=== PATIENT | female | born 1990 | race Caucasian/White ===

== ENCOUNTER 2016-05-02 00:49 | Emergency (ER) | payer OTHER ==
[~2016-05-02] VITALS: Ht 160 cm; Wt 91.4 kg
[~2016-05-02 00:49] MED LIST: ALBUTEROL SULF8.5 GM IH; BACLOFEN10 MG PO; FLONASE ALLERG9.9 ML BOTH NARES; FLONASE16 G1 BOTH NARES; MOTRIN800 MG PO; MUCUS RELIEF600 M1 PO; NAPROSYN500 MG PO; PEN-VEE K,VEET500 MG PO; PREDNISONE20 MG PO; ROBITUSSIN NIG118 ML PO; TESSALON PERLE100 MG PO; ULTRAM50 MG PO; ZITHROMAX Z-PA250 MG PO
[2016-05-02 01:08] VITALS: BP 106/69
== END 2016-05-02 02:30 | disposition left against medical advice (07) ==
LOC: EME 00:49
DX: M25.561 Pain in right knee (principal); M25.562 Pain in left knee; Z53.21 Procedure and treatment not carried out due to patient leaving prior to being seen by health care provider

== ENCOUNTER 2016-05-04 20:24 | Emergency (ER) | payer SELFPAY ==
[~2016-05-04] VITALS: Ht 160 cm; Wt 87.1 kg
[2016-05-04] MEDS ORDERED: NAPROSYN500 MG PO (21:34)
[2016-05-04] MEDS ORDERED: IBUPROFEN800 MG PO (22:00)
[2016-05-04 22:02] VITALS: BP 134/87
== END 2016-05-04 22:05 | disposition home or self-care (01) ==
LOC: EME 20:24
DX: S83.91XA Sprain of unspecified site of right knee, initial encounter (principal); S83.92XA Sprain of unspecified site of left knee, initial encounter; X58.XXXA Exposure to other specified factors, initial encounter; Y93.E6 Activity, residential relocation; F17.200 Nicotine dependence, unspecified, uncomplicated
CPT/HCPCS: 99281; 99284

== ENCOUNTER 2016-05-19 21:28 | Emergency (ER) | payer SELFPAY ==
[~2016-05-19] VITALS: Ht 160 cm; Wt 83.3 kg
[~2016-05-19 21:28] MED LIST changes: +IBUPROFEN800 MG PO
[2016-05-19 21:57] LABS: HEMATOCRIT 43.4 % (36.0-46.0); MCH 30.1 PG (29.0-34.0); MCHC 33.4 G/DL (30.0-36.0); MCV 90.2 FL (83-99); MEAN PLAT.VOLUME 10.8 uM^3 (9.5-12.4); PLATELET COUNT 300 K/uL (156-360); RBC DIS.WIDTH-CV 12.7 % (11.8-14.6); RBC DIS.WIDTH-SD 41.4 % (39-53); RED BLOOD COUNT 4.81 M/uL (3.80-5.20); WHITE BLOOD COUNT 11.9 K/uL (4.1-10.2)
[2016-05-19 22:07] LABS: CHLORIDE 105 mEq/L (99-109); POTASSIUM 4.2 mEq/L (3.7-5.4); SODIUM 138 mEq/L (136-147)
[2016-05-19 22:10] LABS: GLUCOSE 104 mg/dL (70-99)
[2016-05-19 22:11] LABS: ANION GAP 10 MEQ/L (2-14)
[2016-05-19 22:13] LABS: ALKALINE PHOSPHATASE 65 IU/L (3-129); GFR ESTIMATE (CALCULATED) > 59 mL/min/
[2016-05-19 22:14] LABS: UREA NITROGEN (BUN) 17 mg/dL (9-23)
[2016-05-19 22:18] LABS: QUANTITATIVE HCG < 4.0 MIU/ML
[2016-05-19 23:44] LABS: ADD MIUA? YES; BILIRUBIN NEGATIVE; BLOOD NEGATIVE; COLOR YELLOW ((YELLOW)); GLUCOSE (STRIP) NEGATIVE; KETONES 20; LEUKOCYTES NEGATIVE; NITRITE NEGATIVE; PROTEIN (STRIP) 30; UROBILINOGEN 0.2 MG/DL (0.2-1.0)
[2016-05-19 23:50] LABS: BACTERIA RARE /HPF; EPITHELIAL CELLS 1+ /HPF; MUCUS TRACE /LPF; RED BLOOD CELLS 0-5 /HPF (0-5); UCUL ADDED? NO; UNCLASSIFIED CRYSTALS 2+ /HPF
[2016-05-20] MEDS ORDERED: ZOFRAN ODT4 MG PO (01:40)
[2016-05-20 01:58] VITALS: BP 105/52
== END 2016-05-20 01:59 | disposition home or self-care (01) ==
LOC: EME 21:28
DX: K52.9 Noninfective gastroenteritis and colitis, unspecified (principal); R10.9 Unspecified abdominal pain
CPT/HCPCS: 74177; 80053; 81003; 84702; 85027; 99281; 99285; J2405; J7030

== ENCOUNTER 2016-08-01 23:05 | Emergency (ER) | payer SELFPAY ==
[~2016-08-01] VITALS: Ht 157.5 cm; Wt 83.6 kg
[~2016-08-01 23:05] MED LIST changes: +ZOFRAN ODT4 MG PO
[2016-08-02 00:19] LABS: HEMATOCRIT 35.2 % (36.0-46.0); MCH 30.8 PG (29.0-34.0); MCV 93.4 FL (83-99); MEAN PLAT.VOLUME 10.1 uM^3 (9.5-12.4); PLATELET COUNT 297 K/uL (156-360); RBC DIS.WIDTH-CV 12.7 % (11.8-14.6); RBC DIS.WIDTH-SD 43.6 % (39-53); RED BLOOD COUNT 3.77 M/uL (3.80-5.20)
[2016-08-02 00:31] LABS: CHLORIDE 105 mEq/L (99-109); POTASSIUM 3.6 mEq/L (3.7-5.4); SODIUM 138 mEq/L (136-147)
[2016-08-02 00:34] LABS: GLUCOSE 100 mg/dL (70-99)
[2016-08-02 00:35] LABS: ANION GAP 9 MEQ/L (2-14)
[2016-08-02 00:36] LABS: TOTAL BILIRUBIN 0.2 mg/dL (0.0-1.0)
[2016-08-02 00:37] LABS: ALKALINE PHOSPHATASE 46 IU/L (3-129); GFR ESTIMATE (CALCULATED) > 59 mL/min/
[2016-08-02 00:38] LABS: UREA NITROGEN (BUN) 11 mg/dL (9-23)
[2016-08-02 00:41] LABS: LIPASE 21 U/L (1.0-51.0)
[2016-08-02 00:48] LABS: BILIRUBIN NEGATIVE; BLOOD NEGATIVE; COLOR YELLOW ((YELLOW)); GLUCOSE (STRIP) NEGATIVE; KETONES NEGATIVE; LEUKOCYTES NEGATIVE; NITRITE NEGATIVE; PROTEIN (STRIP) NEGATIVE; SPECIFIC GRAVITY 1.025 (1.000-1.030); UROBILINOGEN 0.2 MG/DL (0.2-1.0)
[2016-08-02 00:49] LABS: ADD MIUA? NO; UCUL ADDED? NO
[2016-08-02 01:06] LABS: QUANTITATIVE HCG 19941.9 MIU/ML
[2016-08-02 02:55] VITALS: BP 110/80
== END 2016-08-02 03:01 | disposition home or self-care (01) ==
LOC: EME 23:05 → RME 23:05
PROVIDERS: Physician Assistant Medical
DX: O26.891 Other specified pregnancy related conditions, first trimester (principal); R10.30 Lower abdominal pain, unspecified; Z3A.01 Less than 8 weeks gestation of pregnancy; O99.331 Smoking (tobacco) complicating pregnancy, first trimester; F17.200 Nicotine dependence, unspecified, uncomplicated
CPT/HCPCS: 76801; 80053; 81003; 83690; 84702; 85027; 86900; 86901; 99281; 99284

== ENCOUNTER 2016-12-19 02:34 | Emergency (ER) | payer OTHER ==
[~2016-12-19] VITALS: Ht 160 cm; Wt 93.0 kg
[2016-12-19] MEDS ORDERED: KEFLEX500 MG PO (03:46)
[2016-12-19 05:00] VITALS: BP 101/71
== END 2016-12-19 05:17 | disposition home or self-care (01) ==
LOC: EME 02:34
DX: L24.9 Irritant contact dermatitis, unspecified cause (principal); L73.9 Follicular disorder, unspecified; Z33.1 Pregnant state, incidental; Z3A.26 26 weeks gestation of pregnancy; Z87.891 Personal history of nicotine dependence
CPT/HCPCS: 99281; 99284

== ENCOUNTER → 2017-01-05 | Outpatient (CLI) | payer OTHER ==
[~2017-01-05] VITALS: Ht 160 cm; Wt 92.1 kg
[~2017-01-05] MED LIST changes: +KEFLEX500 MG PO; +PRENATAL TABLE1 EAC3 PO
[2017-01-05 17:19] VITALS: BP 123/69
== END | disposition home or self-care (01) ==
LOC: IVINF 16:39
DX: Z31.82 Encounter for Rh incompatibility status (principal); Z3A.28 28 weeks gestation of pregnancy; Z67.21 Type B blood, Rh negative
CPT/HCPCS: J2790

== ENCOUNTER 2017-03-15 02:19 | Outpatient (CLI) | payer OTHER ==
[~2017-03-15] VITALS: Ht 160 cm; Wt 105.7 kg
[2017-03-15 03:16] LABS: HEMATOCRIT 35.2 % (36.0-46.0); HEMOGLOBIN 11.6 G/DL (11.9-15.5); MCH 29.9 PG (29.0-34.0); MCV 90.7 FL (83-99); PLATELET COUNT 285 K/uL (156-360); RBC DIS.WIDTH-CV 14.6 % (11.8-14.6); RBC DIS.WIDTH-SD 48.4 % (39-53); RED BLOOD COUNT 3.88 M/uL (3.80-5.20); WHITE BLOOD COUNT 13.8 K/uL (4.1-10.2)
[2017-03-15 03:24] LABS: ALBUMIN 3.2 g/dL (3.2-4.8)
[2017-03-15 03:25] LABS: CHLORIDE 104 mEq/L (99-109); POTASSIUM 3.8 mEq/L (3.7-5.4); SODIUM 134 mEq/L (136-147)
[2017-03-15 03:27] LABS: GLUCOSE 92 mg/dL (70-99); TOTAL PROTEIN 6.3 g/dL (6.4-8.3)
[2017-03-15 03:29] LABS: TOTAL BILIRUBIN 0.2 mg/dL (0.0-1.0)
[2017-03-15 03:30] LABS: ALKALINE PHOSPHATASE 178 IU/L (3-129)
[2017-03-15 03:31] LABS: CREATININE 0.7 mg/dL (0.6-1.3); GFR ESTIMATE (CALCULATED) > 59 mL/min/
[2017-03-15 03:32] LABS: AST (GOT) 19 IU/L (2-34); UREA NITROGEN (BUN) 13 mg/dL (9-23)
[2017-03-15 03:33] LABS: ALT (GPT) 24 IU/L (3-49)
[2017-03-15 06:46] VITALS: BP 130/74
[2017-03-15 07:17] VITALS: BP 120/83
[2017-03-15 07:48] VITALS: BP 120/79
[2017-03-15 08:17] VITALS: BP 119/58
[2017-03-15 08:26] LABS: UR CREATININE CONCENTRATION 88.5 MG/DL
== END 2017-03-15 09:07 | disposition home or self-care (01) ==
LOC: LDRP-OP 02:19 → EME 02:19 → EDSTATUS 06:15 → 2WEST 06:16
PROVIDERS: Obstetrics & Gynecology; Physician Assistant
DX: O26.893 Other specified pregnancy related conditions, third trimester (principal); Z3A.38 38 weeks gestation of pregnancy; O99.213 Obesity complicating pregnancy, third trimester; R51 Headache; H53.8 Other visual disturbances; Z87.891 Personal history of nicotine dependence
CPT/HCPCS: 59025; 70496; 80053; 82570; 84156; 84702; 85027; 99281; 99284; G0378

== ENCOUNTER 2017-04-01 03:51 | Inpatient (IN) | payer OTHER ==
[2017-04-01] VITALS (36 sets, daily range): BP systolic 110–179; BP diastolic 60–104
[~2017-04-01] VITALS: Ht 160 cm; Wt 104.0 kg
[2017-04-01 07:47] LABS: BASOPHIL (%) 0.2 % (0-1); EOSINOPHIL (%) 0.1 % (0-5); HEMATOCRIT 35.5 % (36.0-46.0); HEMOGLOBIN 11.6 G/DL (11.9-15.5); IMMATURE GRANULOCYTE (%) 0.5 % (0.0-0.7); LYMPHOCYTE (%) 7.6 % (15-42); LYMPHOCYTE COUNT 1.4 K/uL (1.0-2.8); MCH 29.1 PG (29.0-34.0); MCHC 32.7 G/DL (30.0-36.0); MCV 89.2 FL (83-99); MONOCYTE COUNT 0.7 K/uL (0-0.8); NEUTROPHIL (%) 87.6 % (45-76); NEUTROPHIL COUNT 15.9 K/uL (1.8-6.4); PLATELET COUNT 288 K/uL (156-360); RBC DIS.WIDTH-CV 14.6 % (11.8-14.6); RBC DIS.WIDTH-SD 47.6 % (39-53); RED BLOOD COUNT 3.98 M/uL (3.80-5.20); WHITE BLOOD COUNT 18.2 K/uL (4.1-10.2)
[2017-04-02] VITALS (10 sets, daily range): BP systolic 121–152; BP diastolic 60–77
[2017-04-02] MEDS ORDERED: MOTRIN800 MG PO (03:35)
[2017-04-03 07:20] VITALS: BP 127/89
[2017-04-03 15:35] VITALS: BP 134/81
[2017-04-03 22:10] VITALS: BP 134/84
[2017-04-04 07:11] VITALS: BP 128/84
== END 2017-04-04 12:38 | disposition home or self-care (01) | DRG 775 ==
LOC: LDRP-OP → 2WEST 03:52 → LDRP-OP 04-29 09:57
PROVIDERS: Advanced Practice Midwife
PROC: 3E0R3BZ Introduction of Anesthetic Agent into Spinal Canal, Percutaneous Approach (ICD-10-PCS; principal; 2017-04-01)
PROC: 00HU33Z Insertion of Infusion Device into Spinal Canal, Percutaneous Approach (ICD-10-PCS; principal; 2017-04-01)
PROC: 10907ZC Drainage of Amniotic Fluid, Therapeutic from Products of Conception, Via Natural or Artificial Opening (ICD-10-PCS; principal; 2017-04-01)
PROC: 10E0XZZ Delivery of Products of Conception, External Approach (ICD-10-PCS; 2017-04-02)
DX: O76 Abnormality in fetal heart rate and rhythm complicating labor and delivery (principal); O69.81X0 Labor and delivery complicated by cord around neck, without compression, not applicable or unspecified; O63.1 Prolonged second stage (of labor); O99.214 Obesity complicating childbirth; E66.9 Obesity, unspecified; O99.344 Other mental disorders complicating childbirth; F41.0 Panic disorder [episodic paroxysmal anxiety]; F32.9 Major depressive disorder, single episode, unspecified; Z3A.40 40 weeks gestation of pregnancy; Z37.0 Single live birth; Z91.410 Personal history of adult physical and sexual abuse; Z91.411 Personal history of adult psychological abuse
CPT/HCPCS: 85025; C1755; G0378; J0595; J3010; J7120; S0020